=== PATIENT | female | born 1990 | race Caucasian/White ===

== ENCOUNTER 2017-10-01 19:53 | Emergency (ER) | payer OTHER ==
[~2017-10-01] VITALS: Ht 157.5 cm; Wt 70.5 kg
[~2017-10-01 19:53] MED LIST: ONDA4TAB6 PO
[2017-10-01 20:04] VITALS: BP 110/72
== END 2017-10-01 21:47 | disposition home or self-care (01) ==
LOC: ER 19:53
DX: S61.211A Laceration without foreign body of left index finger without damage to nail, initial encounter (principal); W26.0XXA Contact with knife, initial encounter; Y93.89 Activity, other specified; Y92.89 Other specified places as the place of occurrence of the external cause; Y99.8 Other external cause status
CPT/HCPCS: 12001; 99283